=== PATIENT | male | born 1950 | race Two or more races ===

== ENCOUNTER 2017-12-29 11:26 | Emergency (ER) | payer OTHER ==
[2017-12-29 11:26] VITALS: BP 0/0
[2017-12-29] MEDS ORDERED: SODIUM BICARBONATE 8.4% INJ 50ML SYRINGE IV ONE (11:27)
[2017-12-29] MEDS ORDERED: CALCIUM CHLOR(10%) 100MG/ML 10ML SYRINGE IV ONE (11:27)
[2017-12-29] MEDS ORDERED: EPINEPHrine HCL 1 MG/10 ML SYRG IV ONE (11:27)
[2017-12-29] MEDS ORDERED: SODIUM BICARBONATE 8.4% INJ 50ML SYRINGE ONE (11:35)
== END 2017-12-29 15:18 | disposition expired ==
LOC: EDBD 11:26 → ER 11:26
DX: I46.9 Cardiac arrest, cause unspecified (principal); I10 Essential (primary) hypertension
CPT/HCPCS: 31500; 92950; 99291; J0171